=== PATIENT | male | born 1940 | race Two or more races ===

== ENCOUNTER 2023-03-10 05:23 | Day surgery (SDC) | payer OTHER ==
[2023-03-10] MEDS ORDERED: OXYC1TAB9 PO (10:50)
== END 2023-03-10 16:20 | disposition home or self-care (01) ==
LOC: CIR.AMB 05:23
PROVIDERS: ATTEND Surgery
DX: K64.4 Residual hemorrhoidal skin tags (principal); K64.8 Other hemorrhoids; K62.5 Hemorrhage of anus and rectum; K62.89 Other specified diseases of anus and rectum; K60.1 Chronic anal fissure; Z20.822 Contact with and (suspected) exposure to COVID-19; Z88.0 Allergy status to penicillin; I10 Essential (primary) hypertension

== ENCOUNTER 2023-11-30 06:32 | Day surgery (SDC) | payer OTHER ==
[2023-11-24 14:16] VITALS: BP 190/68
[2023-11-24 14:17] VITALS: BP 173/73
[~2023-11-30] VITALS: Ht 170.2 cm; Wt 72.6 kg
[~2023-11-30 06:32] MED LIST: BAYER THERAPY325 MG PO; BUSPIRONE HCL5 MG PO; COZAAR50 MG PO; FENOFIBRATE50 MG PO; GRALISE600 MG PO; LEVO-T50 MCG PO; LEXAPRO5 MG PO; LORAZEPAM0.5 MG PO; METFORMIN HCL500 M3 PO; OXYC1TAB9 PO; TEMAZEPAM30 MG PO; TOPROL XL25 M1 PO
[2023-11-30] MEDS ORDERED: METRONIDAZOLE/SODIUM CHLORIDE 500 MG/100 ML PIGGYBACK IV ONE ×2 (07:44→09:30)
[2023-11-30] MEDS ORDERED: HEMOSTATIC MATRIX 1 KIT KIT TOP ONE ×2 (08:32→09:30)
[2023-11-30] MEDS ORDERED: DIBUCAINE 30 GM TUBE ONE (08:32)
[2023-11-30] MEDS ORDERED: POVIDONE-IODINE 118 ML BOTT TOP ONE ×2 (08:32→09:30)
[2023-11-30] MEDS ORDERED: BUPIVACAINE HCL/Mpf 0.5% 10ML VIAL ONE (08:33)
[2023-11-30] MEDS ORDERED: LIDOCAINE HCL 1%/EPINEPHRINE 20ML VIAL IJ ONE ×2 (08:33→09:30)
[2023-11-30] MEDS ORDERED: levoFLOXacin IN DEXTROSE 5 % 5 MG/ML PIGGYBAG IV ONE (09:30)
[2023-11-30] MEDS ORDERED: BUPIVACAINE HCL/PF 0.25% 30ML VIAL InF ONE (09:30)
[2023-11-30] MEDS ORDERED: DIBUCAINE 15 GM OINT..GM. TUBE RECTAL ONE (09:30)
[2023-11-30] MEDS ORDERED: TAMSULOSIN HCL 0.4 MG CAP PO ONE (09:45)
[2023-11-30] MEDS ORDERED: OXYC1TAB9 PO (09:46)
== END 2023-11-30 14:20 | disposition home or self-care (01) ==
LOC: CIR.AMB 06:32
PROVIDERS: ATTEND Surgery
DX: K60.1 Chronic anal fissure (principal); K62.89 Other specified diseases of anus and rectum; K62.4 Stenosis of anus and rectum; K62.5 Hemorrhage of anus and rectum; K64.8 Other hemorrhoids; R33.9 Retention of urine, unspecified; Z88.0 Allergy status to penicillin; I10 Essential (primary) hypertension